=== PATIENT | female | born 1970 | race Caucasian/White ===

== ENCOUNTER 2024-11-19 06:29 | Day surgery (SDC) | payer BC, SELFPAY ==
[2024-11-19 10:01] VITALS: BMI 22.9
[2024-11-19 10:02] VITALS: BMI 22.9
[2024-11-19 10:03] VITALS: BP 104/74
[2024-11-19 11:56] VITALS: BP 96/84
[2024-11-19 12:00] VITALS: BP 106/85
[2024-11-19 12:13] VITALS: BP 97/77
[2024-11-19 12:25] VITALS: BP 100/68
== END 2024-11-19 12:30 | disposition home or self-care (01) ==
LOC: GI 06:29
PROVIDERS: ATTENDING PHYSICIAN Internal Medicine Gastroenterology
DX: Z12.11 Encounter for screening for malignant neoplasm of colon (principal); K63.5 Polyp of colon; K57.30 Diverticulosis of large intestine without perforation or abscess without bleeding; K64.0 First degree hemorrhoids; Z86.0101 Personal history of adenomatous and serrated colon polyps
CPT/HCPCS: 45385; 88305